=== PATIENT | female | born 1995 | race Caucasian/White ===

== ENCOUNTER 2017-04-28 12:59 | Inpatient (IN) | payer MEDICAID ==
[~2017-04-28] VITALS: Ht 157.5 cm; Wt 91.8 kg
[2017-04-28 13:09] VITALS: Ht 157.5 cm; Wt 91.8 kg
[2017-04-28 13:11] VITALS: BP 130/83; PULSE 82
[2017-04-28] MEDS ORDERED: PRENAT PO (13:17)
[2017-04-28] MEDS ORDERED: BUTORPHANOL 2 MG INJ IV PRN (15:00)
[2017-04-28] MEDS ORDERED: LIDOCAINE 1% (MPF) 30 ML INJ INJ PRN (15:00)
[2017-04-28] MEDS ORDERED: DINOPROSTONE 10 MG VAG SUPP VAG ONE (15:00)
[2017-04-28] MEDS ORDERED: OXYTOCIN 30 UNITS/LR 500 ML IV PRN (15:00)
[2017-04-28] MEDS ORDERED: CARBOPROST 250 MCG INJ IM PRN (15:00)
[2017-04-28] MEDS ORDERED: METHYLERGONOVINE 0.2 MG INJ IM PRN (15:00)
[2017-04-28] MEDS ORDERED: IBUPROFEN 600 MG TAB PO PRN (15:00)
[2017-04-28] MEDS ORDERED: MISOPROSTOL 200 MCG TAB PR PRN (15:00)
[2017-04-28] MEDS ORDERED: OXYTOCIN 30 UNITS/LR 500 ML IV SCH (15:00)
--- NOTE | 2017-04-28 15:16 | RADRPT ---
PROCEDURE: US OB. CLINICAL INDICATION: Size and dates , labor pain TECHNIQUE: Multiple sonographic images of the pelvis and gravid uterus were obtained. The images were reviewed on a PACS workstation. COMPARISON: No prior studies are available for comparison. FINDINGS: There is a single viable intrauterine gestation. Cardiac activity is present with 171 beats per min bj. There is a vertex presentation. The placenta is fundal. There is no evidence for an abruption or placenta previa. Measurements were made in order to determine age. The results are as follows: BPD =8.9 cm HC =31.5 cm AC =33.1 cm FL =7.1 cm Estimated gestational age of approximately 36 weeks and 1 day based on ultrasound measurements. Clinical age: 38 weeks and 0 days. The estimated date of delivery is 05/25/17, based on ultrasound measurements. The EFW = 2974 g, 26.2%, based on LMP age. RPTAT: AA IMPRESSION: Single viable intrauterine gestation of approximately 36 weeks and 1 day based on ultrasound measur ements. .Mark Wellington MD, Date Time Electronically viewed and signed by .Mark Wellington MD, MD on 04/28/2017 15:16 .S/
[2017-04-28] MEDS: LACTATED RINGER'S 1,000 ML IV SCH ×2 (15:21→22:36)
[2017-04-28 15:55] LABS: ADD SCAN DIFF NO
[2017-04-28 15:58] LABS: BASOPHILS % 0.4 % (0.0-2.0); EOSINOPHILS % 0.2 % (0.0-7.0); HEMATOCRIT 38.7 % (37.0-47.0); HEMOGLOBIN 14.1 g/dl (12.0-16.0); LYMPHOCYTES % 19.8 % (15.0-51.0); MEAN CORPUSCULAR HEMOGLOBIN 32.6 pg (29.0-33.0); MEAN CORPUSCULAR HGB CONC 36.4 g/dl (32.0-37.0); MEAN CORPUSCULAR VOLUME 89.4 fl (82.0-101.0); MEAN PLATELET VOLUME 10.5 fl (7.4-10.4); MONOCYTE # 0.7 10^3/ul (0.3-0.9); NEUTROPHIL # 7.1 10^3/ul (1.6-7.5); NEUTROPHILS % 71.6 % (39.0-77.0); PLATELET COUNT 241 10^3/UL (140-415); RED BLOOD COUNT 4.33 10^6/ul (4.20-5.40); WHITE BLOOD COUNT 9.9 10^3/ul (4.8-10.8)
[2017-04-28 16:06] LABS: ADD UMIC NO; UR BILIRUBIN (Dip) NEGATIVE (NEGATIVE); UR BLOOD (Dip) NEGATIVE (NEGATIVE); UR CLARITY CLEAR (CLEAR); UR COLOR YELLOW (YELLOW); UR GLUCOSE (Dip) NEGATIVE (NEGATIVE); UR KETONES (Dip) NEGATIVE (NEGATIVE); UR LEUKOCYTE ESTERASE (Dip) NEGATIVE (NEGATIVE); UR NITRITE (Dip) NEGATIVE (NEGATIVE); UR TOTAL PROTEIN (Dip) NEGATIVE (NEGATIVE); UR UROBILINOGEN (Dip) 0.2 E.U./dL (0.1-1.0)
[2017-04-28 16:20] LABS: INR 0.89; PT RATIO 0.9
[2017-04-28 16:21] LABS: PARTIAL THROMBOPLASTIN TIME 26.9 Sec (25.0-35.0)
[2017-04-28 17:55] LABS: ALBUMIN 3.8 g/dl (3.3-4.9); ALBUMIN/GLOBULIN RATIO 1.72; BILIRUBIN,INDIRECT 0.2 mg/dl (0-1.1); BILIRUBIN,TOTAL 0.2 mg/dl (0.2-1.3); CALCIUM 9.6 mg/dl (8.4-10.2); CREATININE 0.63 mg/dl (0.44-1.00); POTASSIUM 4.3 mmol/L (3.5-5.1)
[2017-04-29] MEDS: LACTATED RINGER'S 1,000 ML IV SCH ×2 (03:57→07:52)
[2017-04-29] MEDS ORDERED: OXYTOCIN 30 UNITS/LR 500 ML IV SCH (04:30)
[2017-04-29] MEDS: BUTORPHANOL 2 MG INJ IV PRN ×2 (06:58→08:59)
[2017-04-29] MEDS ORDERED: LACTATED RINGER'S 1,000 ML IV PRN (10:00)
[2017-04-29] MEDS ORDERED: DEXTROSE 5%-LR 1,000 ML IV PRN (10:50)
[2017-04-29 15:35] VITALS: BP 120/76; PULSE 66; RESP 19
[2017-04-29] MEDS: OXYTOCIN 30 UNITS/LR 500 ML IV SCH ×2 (15:35→18:44)
[2017-04-29] MEDS ORDERED: LACTATED RINGER'S 1,000 ML IV* SCH (15:35)
[2017-04-29] MEDS ORDERED: DIPHENHYDRAMINE 25 MG CAP PO PRN (16:00)
[2017-04-29] MEDS ORDERED: MISOPROSTOL 200 MCG TAB PR PRN (16:00)
[2017-04-29] MEDS ORDERED: SENNA/DOCUSATE NA (8.6MG/50MG) TAB PO PRN (16:00)
[2017-04-29] MEDS ORDERED: CARBOPROST 250 MCG INJ IM PRN (16:00)
[2017-04-29] MEDS ORDERED: METHYLERGONOVINE 0.2 MG INJ IM PRN (16:00)
[2017-04-29] MEDS ORDERED: LANOLIN 7 GM TUBE TOP PRN (16:00)
[2017-04-29] MEDS ORDERED: MAGNESIUM HYDROXIDE 30ML CUP PO PRN (16:00)
[2017-04-29] MEDS ORDERED: OXYTOCIN 30 UNITS/LR 500 ML IV PRN (16:00)
[2017-04-29] MEDS ORDERED: BENZOCAINE 20% 56 ML SPRAY TOP PRN (16:00)
[2017-04-29] MEDS ORDERED: ACETAMINOPHEN/CODEINE #3 TAB PO PRN (16:00)
[2017-04-29] MEDS ORDERED: ACETAMINOPHEN 325 MG TAB PO PRN (16:00)
[2017-04-29] MEDS ORDERED: WITCH HAZEL/GLYCERIN PAD PR PRN (16:00)
[2017-04-29] MEDS ORDERED: ZOLPIDEM 5 MG TAB PO PRN (16:00)
[2017-04-29] MEDS: IBUPROFEN 800 MG TAB PO SCH (17:23)
[2017-04-29 20:00] VITALS: BP 109/68; PULSE 79; RESP 18
--- NOTE | 2017-04-29 20:07 | HP ---
Date/Time of Note Date/Time of Note DATE: 04/29/17 TIME: 20:06 OB - History Hx of Present Free Text/Dictation 38 weeks admitted for induction due to inc. in BP Care: Good Care Ultrasounds: Normal mid trimester US Obstetrical Complications: None Medical Complications: None Past Family/Social History * Past Medical, Surgical, Family and Obstetric Histories reviewed from chart. OB Admission Exam Vital Signs Vital Signs Vital Signs Date Time Temp Pulse Resp B/P Pulse Ox O2 Delivery O2 Flow Rate FiO2 04/29/17 15:35 98.1 66 19 120/76 Room Air Physical Exam HEENT: WNL Heart: Rhythm Normal Lungs: Clear, Equal Abdomen: WNL Extremities: Normal Reflexes: Normal Cervical Dilatation: 10cm Effacement: 100% Station: +3 Membranes: Ruptured Amniotic Fluid: Clear Heart Rate: 130's Accelerations: Accelerations Present Intensity: Moderate Last 72 hours Lab Results CBC & BMP 04/28/17 15:20 Liver Function Test 04/28/17 15:20 Alanine Aminotransferase (ALT/SGPT) 35 Albumin 3.8 Alkaline Phosphatase 180 H Aspartate Amino Transf (AST/SGOT) 20 Direct Bilirubin 0.00 Total Protein 6.0 L OB Assessment/Plan Reason for admission: induction of labor Plan: Induction MARGARITO LOO MD Apr 29, 2017 20:07
--- NOTE | 2017-04-29 20:08 | LDN ---
Date/Time of Note Date/Time of Note DATE: 04/29/17 TIME: 20:07 Delivery Summary term preg, NSD Assisted Vaginal Delivery: Vacuum Placenta Delivered: Spontaneously Meconium: none Episiotomy: No Perineal laceration: 1 Anesthesia type: Local Estimated blood loss: 350 Sponge & Needle done & correct: Yes Problems: MARGARITO LOO MD Apr 29, 2017 20:08
[2017-04-30 00:05] VITALS: BP 107/71; PULSE 65; RESP 18
[2017-04-30 04:00] VITALS: BP 114/56; PULSE 18; RESP 18
[2017-04-30] MEDS: LACTATED RINGER'S 1,000 ML IV* SCH ×2 (04:59→12:59)
[2017-04-30] MEDS: OXYTOCIN 30 UNITS/LR 500 ML IV SCH ×2 (04:59→08:59)
[2017-04-30] MEDS ORDERED: ACETAMINOPHEN/CODEINE #3 TAB PO PRN (05:00)
[2017-04-30] MEDS ORDERED: WITCH HAZEL/GLYCERIN PAD PR PRN (05:00)
[2017-04-30] MEDS ORDERED: LANOLIN 7 GM TUBE TOP PRN (05:00)
[2017-04-30] MEDS ORDERED: MISOPROSTOL 200 MCG TAB PR PRN (05:00)
[2017-04-30] MEDS ORDERED: MAGNESIUM HYDROXIDE 30ML CUP PO PRN (05:00)
[2017-04-30] MEDS ORDERED: CARBOPROST 250 MCG INJ IM PRN (05:00)
[2017-04-30] MEDS ORDERED: SENNA/DOCUSATE NA (8.6MG/50MG) TAB PO PRN (05:00)
[2017-04-30] MEDS ORDERED: METHYLERGONOVINE 0.2 MG INJ IM PRN (05:00)
[2017-04-30] MEDS ORDERED: BENZOCAINE 20% 56 ML SPRAY TOP PRN (05:00)
[2017-04-30] MEDS ORDERED: DIPHENHYDRAMINE 25 MG CAP PO PRN (05:00)
[2017-04-30] MEDS ORDERED: OXYTOCIN 30 UNITS/LR 500 ML IV PRN (05:00)
[2017-04-30] MEDS ORDERED: ZOLPIDEM 5 MG TAB PO PRN (05:00)
[2017-04-30] MEDS ORDERED: ACETAMINOPHEN 325 MG TAB PO PRN (05:00)
[2017-04-30] MEDS: IBUPROFEN 800 MG TAB PO SCH ×4 (05:32→18:00)
[2017-04-30 07:56] LABS: ADD SCAN DIFF NO
[2017-04-30 08:00] VITALS: BP 94/78; PULSE 78; RESP 18
[2017-04-30 08:02] LABS: BASOPHILS % 0.3 % (0.0-2.0); EOSINOPHILS % 0.3 % (0.0-7.0); HEMATOCRIT 32.6 % (37.0-47.0); HEMOGLOBIN 11.2 g/dl (12.0-16.0); LYMPHOCYTES # 3.4 10^3/ul (0.8-2.9); LYMPHOCYTES % 23.5 % (15.0-51.0); MEAN CORPUSCULAR HEMOGLOBIN 31.9 pg (29.0-33.0); MEAN CORPUSCULAR HGB CONC 34.4 g/dl (32.0-37.0); MEAN CORPUSCULAR VOLUME 92.9 fl (82.0-101.0); MEAN PLATELET VOLUME 10.7 fl (7.4-10.4); MONOCYTE # 1.3 10^3/ul (0.3-0.9); MONOCYTES % 8.7 % (0.0-11.0); NEUTROPHIL # 9.6 10^3/ul (1.6-7.5); NEUTROPHILS % 66.3 % (39.0-77.0); PLATELET COUNT 219 10^3/UL (140-415); RED BLOOD COUNT 3.51 10^6/ul (4.20-5.40); RED CELL DISTRIBUTION WIDTH 12.7 % (11.5-14.5); WHITE BLOOD COUNT 14.5 10^3/ul (4.8-10.8)
--- NOTE | 2017-04-30 13:47 | PN ---
Date/Time of Note Date/Time of Note DATE: 04/30/17 TIME: 13:40 OB Subjective Subjective Subjective Patient denies any headache, blurred vision or epigastric pain. Vaginal bleeding in the amount of menses, breast-feeding day, status post induced for, PIH OB Objective Objective Objective General appearance: Alert and oriented 4 patient does not appear to be in any acute distress. Abdomen: Soft, fundal height at the level of umbilicus. No fundal tenderness, Extremities: 1+ bilateral lower extremity nonpitting edema. breasts: No engorgement, no fissure and no evidence of mastitis Hematology Test 04/28/17 15:20 04/30/17 06:50 Hematocrit 38.7% (37.0-47.0) 32.6% (37.0-47.0) L Hemoglobin 14.1g/dl (12.0-16.0) 11.2g/dl (12.0-16.0) #L Mean Corpuscular Hemoglobin 32.6pg (29.0-33.0) 31.9pg (29.0-33.0) Mean Corpuscular Hemoglobin Concent 36.4g/dl (32.0-37.0) 34.4g/dl (32.0-37.0) Mean Corpuscular Volume 89.4fl (82.0-101.0) 92.9fl (82.0-101.0) Mean Platelet Volume 10.5fl (7.4-10.4) H 10.7fl (7.4-10.4) H Platelet Count 24838^3/UL (140-415) 02889^3/UL (140-415) Red Blood Count 4.3310^6/ul (4.20-5.40) 3.5110^6/ul (4.20-5.40) L Red Cell Distribution Width 12.0% (11.5-14.5) 12.7% (11.5-14.5) White Blood Count 9.910^3/ul (4.8-10.8) 14.510^3/ul (4.8-10.8) #H OB Assessment/Plan Other Assessment: Status post Status post induction for PIH Blood pressure well controlled without medication Doing well Mild anemia, status Anticipate DC home tomorrow ARDALAN,HARLEY MD Apr 30, 2017 13:47
[2017-04-30 16:00] VITALS: BP 120/78; PULSE 84; RESP 18
[2017-04-30 19:45] VITALS: BP 120/77; PULSE 82; RESP 20
[2017-05-01] MEDS: IBUPROFEN 800 MG TAB PO SCH ×3 (01:53→12:00)
[2017-05-01 03:40] VITALS: BP 102/59; PULSE 90; RESP 18
--- NOTE | 2017-05-01 07:56 | PD.PPDC ---
[employer] Discharge Instruction Condition Patient Condition: Stable Diet Diet: Resume Regular Diet Activity/Restrictions Activity: Normal Activity May Shower Restrictions: No Exercising No Lifting No Driving No Sexual Activity Nothing in the Vagina No [place] No Tampons, douche Wound/Drain Care Instructions Wound/Drain Care Instructions: Wash with soap and water Keep clean and dry Follow-up Follow-up with Physician: Week/Weeks Return to clinic for [employer] Instructions: Fever greater than 101 Chills Worsening abdominal pain Excessive Vaginal Bleeding More than 2 pads per hour Unable to tolerate diet OB Instructions: Breast Tenderness Depression Blurried Vision Headache Surgical Instructions: Incisional Drainage Incisional Redness MARGARITO LOO MD May 01, 2017 07:56
--- NOTE | 2017-05-01 07:56 | DS ---
Date/Time of Note Date/Time of Note DATE: 05/01/17 TIME: 07:55 Discharge Summary Admission/Discharge Info Admit Date/Time Apr 28, 2017 at 12:59 Discharge Date/Time Final Diagnosis term preg. Patient Condition: Stable Hospital Course unremarkable Home Meds Reported Medications Multivit/Min/Fol Ac/Iron/Pren* ( S*) 1 Tab Tab, 1 TAB PO DAILY, TAB 04/28/17 Primary Care Provider Care Physician No Primary MARGARITO LOO MD May 01, 2017 07:56
[2017-05-01 08:00] VITALS: BP 116/63; PULSE 95; RESP 18
[2017-05-01] MEDS ORDERED: VARICELLA VACCINE LIVE/PF 1,350 UNIT/0.5 ML ML SC* ONE ×2 (09:00)
[2017-05-01] MEDS ORDERED: DIPHTH/TET/ACEL PERTUSS (ADULT) 0.5 ML VIAL IM* ONE ×2 (09:00)
[2017-05-01] MEDS ORDERED: MEASLES,MUMPS,RUBELLA VACCINE INJ SC* ONE ×2 (09:00)
== END 2017-05-01 15:30 | disposition home or self-care (01) | DRG 775 ==
LOC: L-D 12:59 → PP1 04-29 15:06
PROVIDERS: ADMIT Obstetrics & Gynecology; ATTEND Obstetrics & Gynecology
PROC: 10D07Z6 Extraction of Products of Conception, Vacuum, Via Natural or Artificial Opening (ICD-10-PCS; principal; 2017-04-29)
PROC: 3E033VJ Introduction of Other Hormone into Peripheral Vein, Percutaneous Approach (ICD-10-PCS; 2017-04-29)
PROC: 0HQ9XZZ Repair Perineum Skin, External Approach (ICD-10-PCS; 2017-04-29)
DX: O70.0 First degree perineal laceration during delivery (principal); O66.5 Attempted application of vacuum extractor and forceps; Z3A.38 38 weeks gestation of pregnancy; Z37.0 Single live birth
CPT/HCPCS: 76815; 80053; 81003; 84560; 85025; 85384; 85610; 85730; 86592; 86900; 86901; 87340; 90715; 90716; J0595; J2590; J7120